=== PATIENT | male | born 1945 | race Caucasian/White ===

== ENCOUNTER 2023-01-03 10:50 | Outpatient (OUT) | payer MEDICARE, SELFPAY ==
[2023-01-03 11:47] LABS: Calcium 9.3 mg/dL (8.5-10.1); Carbon Dioxide 28.8 mmol/L (21.0-32.0); Chloride 102 mmol/L (98-107); Estimated GFR (African America >60 (>=60); Estimated GFR (Non-African Ame 52 (>=60); Glucose 229 mg/dL (74-106); Potassium 3.8 mmol/L (3.5-5.1); Sodium 140 mmol/L (136-145)
== END 2023-01-03 10:51 | disposition home or self-care (01) ==
LOC: LAB 10:55
PROVIDERS: PCP Nurse Practitioner Family
DX: Z01.818 Encounter for other preprocedural examination (principal)
CPT/HCPCS: 36415; 80048

== ENCOUNTER 2024-02-09 08:49 | Outpatient (OUT) | payer OTHER, SELFPAY ==
[2024-02-09 09:48] LABS: Estimated Average Glucose 151 mg/dL; Glycohemoglobin A1C 6.9 % (4.5-6.2)
== END 2024-02-09 08:50 | disposition home or self-care (01) ==
LOC: LAB 08:54
PROVIDERS: PCP Nurse Practitioner Family; Visit Provider Nurse Practitioner Family
DX: E11.9 Type 2 diabetes mellitus without complications (principal)
CPT/HCPCS: 36415; 83036

== ENCOUNTER 2024-04-09 08:16 | Outpatient (OUT) | payer OTHER, SELFPAY ==
[2024-04-09 08:40] LABS: Estimated Average Glucose 183 mg/dL
== END 2024-04-09 08:17 | disposition home or self-care (01) ==
LOC: LAB 08:19
PROVIDERS: PCP Nurse Practitioner Family; Visit Provider Nurse Practitioner Family
DX: E11.9 Type 2 diabetes mellitus without complications (principal)
CPT/HCPCS: 36415; 83036

== ENCOUNTER 2025-02-05 08:00 | Outpatient (OUT) | payer OTHER, SELFPAY ==
--- OUTSIDE RECORDS SUMMARY | 2025-02-05 08:12 | XMS_ITS | CCD ---
Author Organization [facility] Inform ion Partnership [employer] [facility] Care Team Providers Care Rag Boiler Name Role Phone JAQUI LEES Admitting Unavailable YOANA, JAQUI Attending Unavailable YOANA, JAQUI Primary Care Unavailable YOANA, JAQUI Consulting Unavailable YOANA, JAQUI Admitting Unavailable YOANA, JAQUI Attending Unavailable YOANA, JAQUI Primary Care Unavailable YOANA, JAQUI Consulting Unavailable HOY ., DR MATHUR Admitting Unavailable HOY ., DR MATHUR Attending Unavailable YOANA, JAQUI Primary Care Unavailable HOY ., DR MATHUR Consulting Unavailable YOANA, JAQUI Admitting Unavailable YOANA, JAQUI Attending Unavailable YOANA, JAQUI Primary Care Unavailable YOANA, JAQUI Admitting Unavailable YOANA, JAQUI Attending Unavailable YOANA, JAQUI Primary Care Unavailable YOANA, JAQUI Consulting Unavailable YOANA, JAQUI Admitting Unavailable YOANA, JAQUI Attending Unavailable YOANA, JAQUI Primary Care Unavailable YOANA, JAQUI Consulting Unavailable YOANA, JAQUI S Primary Care Physician [phone] Venkata PHILLIPS Attending Unavailable Venkata PHILLIPS Attending Unavailable MARICARMEN HURTADO Attending Unavailable ROGE MILNER Attending Unavailable Medications Current Medications Medication Drug Class(es) Dates Sig (Normalized) Sig (Original) Ascorbic Acid (2 sources) Vitamin C Start: 02-22-2021 Vitamin C Daily, Refills(s) 0 Start Date: 02/22/21 Status: Ordered aspirin 325 mg oral tablet (2 sources) Platelet Aggregation Inhibitor, Nonsteroidal Anti-inflammatory Drug Start: 11-20-2014 take 325 mg by mouth once daily aspirin 325 mg, Oral, Daily, Refills(s) 0 Start Date: 11/20/14 Status: Ordered Atenolol / Chlorthalidone (2 sources) Thiazide-like Diuretic, beta-Adrenergic Bryce Start: 08-22-2013 atenolol-chlorthal idone 100 mg-25 mg oral tablet 1 tab(s), Oral, Daily, 30 tab(s), Refill(s) 0 Start Date: 08/22/13 Status: Ordered Cinnamon Preparation (2 sources) Non-Standardized Food Allergenic Extract Start: 02-22-2021 take 1 mg by mouth twice daily cinnamon mg, Oral, BID, Refills(s) 0 Start Date: 02/22/21 Status: Ordered famotidine 20 mg oral tablet (2 sources) Histamine-2 Receptor Antagonist Start: 02-22-2021 take 1 mg by mouth twice daily famotidine 20 mg Tab mg tab(s), Oral, BID, Refills(s) 0 Start Date: 02/22/21 Status: Ordered magnesium oxide 400 mg oral tablet (2 sources) Start: 02-22-2021 take 1 mg by mouth once daily magnesium oxide 400 mg Tab mg tab(s), Oral, Daily, Refills(s) 0 Start Date: 02/22/21 Status: Ordered metFORMIN hydrochloride 500 mg oral tablet (2 sources) Biguanide Start: 11-20-2014 take 500 mg by mouth twice daily metformin 500 mg, Oral, BID, Refills(s) 0 Start Date: 11/20/14 Status: Ordered Multivitamins and Minerals (2 sources) Start: 02-22-2021 Multivitamins and Minerals Refill(s) 0 Start Date: 02/22/21 Status: Ordered Nasacort Allergy 24HR (2 sources) Start: 02-22-2021 Nasacort Allergy 24HR Nasal, Daily, Refill(s) 0 Start Date: 02/22/21 Status: Ordered tamsulosin hydrochloride 0.4 mg oral capsule (2 sources) alpha-Adrenergic Bryce Start: 08-17-2023 take 1 capsule by mouth once daily tamsulosin 0.4 mg Cap 0.4 mg = 1 cap(s), Oral, Daily, # 90 cap(s), Refills(s) 4, Pharmacy: [facility]/pharmacy #[id number], 178, cm, 10/17/22 14:22:00 EDT, Height/Length Dosing, 78, kg, 10/17/22 14:22:00 EDT, Weight Dosing Start Date: 08/17/23 Status: Ordered Start: 08-15-2022 take 1 capsule by [facility] once daily tamsulosin 0.4 mg Cap 0.4 mg = 1 cap(s), Oral, Daily, # 90 cap(s), Refills(s) 3, Pharmacy: [facility]/pharmacy #[id number], 178, cm, 03/02/21 11:25:00 EDT, Height/Length Dosing, 77, kg, 02/22/21 13:18:00 EDT, Weight Dosing Start Date: 08/15/22 Status: Ordered Turmeric extract (1 source) Start: 02-22-2021 take 1 mg by mouth once daily Turmeric mg, Oral, Daily, Refill(s) 0 Start Date: 02/22/21 Status: Ordered Vitamin B Complex oral tablet (2 sources) Start: 02-22-2021 Vitamin B Comp mary carmen oral tablet Oral, Daily, Refill(s) 0 Start Date: 02/22/21 Status: Ordered Vitamin D3 (2 sources) Start: 02-22-2021 Vitamin D3 Ref ills(s) 0 Start Date: 02/22/21 Status: Ordered Zinc (1 source) Start: 02-22-2021 take 1 mg by mouth once daily Zinc mg, Oral, Daily, Refills(s) 0 Start Date: 02/22/21 Status: Ordered Completed/Discontinued Medications Medication Drug Class(es) Dates Sig (Normalized) Sig (Original) potassium chloride 8 meq extended release oral tablet (2 sources) Start: 11-20-2014 take 1 tablet by mouth once daily potassium chloride 8 mEq ER Tab 8 mEq, 1 tab(s), Oral, Daily, Refill(s) 0 Start Date: 11/20/14 Status: Ordered Problems Active Problems Problem Classification Problem Date Documented Date Episodic/Chronic Calculus of urinary tract (4 sources) History of calculus of kidney; Translations: [Personal history of urinary calculi] Onset: 06-13-2022 Episodic Diabetes mellitus without complication (2 sources) Diabetes mellitus 11-20-2014 Chronic Diseases of white blood cells (4 sources) Elevated white blood cell count, unspecified; Translations: [ELEVATED WHITE BLOOD CELL COUNT UNS] Onset: 11-30-2021 Chronic Disorders of lipid metabolism (3 sources) Hyperlipidemia, unspecified; Translations: [Hypercholesterolemia] Onset: 10-06-2021 11-20-2014 Chronic Esophageal disorders (2 sources) Gastroesophageal reflux disease 11-20-2014 Chronic Essential hypertension (2 sources) Hypertensive disorder 11-20-2014 Chronic Hyperplasia of prostate (6 sources) Benign prostatic hypertrophy with outflow obstruction; Translations: [Benign prostatic hyperplasia with lower urinary tract symptoms] Onset: 06-13-2022 Chronic Inflammatory conditions of male genital organs (2 sources) Prostatitis 02-22-2021 Episodic Malaise and fatigue (4 sources) Other fatigue; Translations: [OTHER FATIGUE] Onset: 06-20-2022 Episodic Nutritional deficiencies (1 source) Vitamin D deficiency, unspecified; Translations: [VITAMIN D DEFICIENCY UNSPECIFIED] Onset: 10-06-2021 Chronic Other diseases of bladder and urethra (2 sources) Hypertrophy of bladder 02-22-2021 Chronic Other diseases of kidney and ureters (2 sources) Cyst of kidney 02-22-2021 Episodic Other screening for suspected conditions (not mental disorders or infectious disease) (4 sources) Other specified abnormal findings of blood chemistry; Translations: [OTH SPEC ABNORMAL FINDINGS BLD CHEM] Onset: 06-21-2022 Episodic Past or Other Problems Problem Classification Problem Date Documented Da te Episodic/Chronic Deficiency and other anemia (1 source) Anemia, unspecified; Translations: [ANEMIA UNSPECIFIED] Onset: 10-06-2021 Episodic Results Test Name Value Interpretation Reference Range Facility Reminderson 06-26-2024 Reminders Reminders From: Joanna Dumont To: [facility] - Administrative; Sent: 10/23/2023 14:34:51 EDT Show up: 05/30/2024 14:34:00 EST Subject: 18 month F/U Due Date/Time: 04/09/2025 14:34:00 EST Reminder/Recall Patient needs an 18 month f/u -no labs, due back in 2024 Called patient on 26 June 2024 at 1111; 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 The prostate may get bigger as a man gets older. The condition is not caused by cancer. The prostate is a walnut-sized gland that is involved in the production of semen. It is located in front of the rectum and below the bladder. The bladder stores urine. The urethra carries stored urine out of the body. An enlarged prostate can press on the urethra. This can make it harder to pass urine. The buildup of urine in the bladder can cause infection. Back pressure and infection may progress to bladder damage and kidney (renal) failure. What are the causes? This condition is part of the normal aging process. However, not all men develop problems from this condition. If the prostate enlarges away from the urethra, urine flow will not be blocked. If it enlarges toward the urethra and compresses it, there will be problems passing urine. What increases the risk? This condition is more likely to develop in men older than 50 years. What are the signs or symptoms? Symptoms of this condition include: ? Getting up often during the night to urinate. ? Needing to urinate frequently during the day. ? Difficulty starting urine flow. ? Decrease in size and strength of your urine stream. ? Leaking (dribbling) after urinating. ? Inability to pass urine. This needs immediate treatment. ? Inability to completely empty your bladder. ? Pain when you pass urine. This is more common if there is also an infection. ? Urinary tract infection (UTI). How is this diagnosed? This condition is diagnosed based on your medical history, a physical exam, and your symptoms. Tests will also be done, such as: ? A post-void bladder scan. This measures any amount of urine that may remain in your bladder after you finish urinating. ? A digital rectal exam. In a rectal exam, your health care provider checks your prostate by putting a lubricated, gloved finger into your rectum to feel the back of your prostate gland. This exam detects the size of your gland and any abnormal lumps or growths. ? An exam of your urine (urinalysis). ? A prostate specific antigen (PSA) screening. This is a blood test used to screen for prostate cancer. ? An ultrasound. This test uses sound waves to electronically produce a picture of your prostate gland. Your health care provider may refer you to a specialist in kidney and prostate diseases (urologist). How is this treated? Once symptoms begin, your health care provider will monitor your condition (active surveillance or watchful waiting). Treatment for this condition will depend on the severity of your condition. Treatment may include: ? Observation and yearly exams. This may be the only treatment needed if your condition and symptoms are mild. ? Medicines to relieve your symptoms, including: ? Medicines to shrink the prostate. ? Medicines to relax the muscle of the prostate. ? Surgery in severe cases. Surgery may include: ? Prostatectomy. In this procedure, the prostate tissue is removed completely through an open incision or with a laparoscope or robotics. ? Transurethral resection of the prostate (TURP). In this procedure, a tool is inserted through the opening at the tip of the penis (urethra). It is used to cut away tissue of the inner core of the prostate. The pieces are removed through the same opening of the penis. This removes the blockage. ? Transurethral incision (TUIP). In this procedure, small cuts are made in the prostate. This lessens the prostate's pressure on the urethra. ? Transurethral microwave thermotherapy (TUMT). This procedure uses microwaves to create heat. The heat destroys and removes a small amount of prostate tissue. ? Transurethral needle ablation (TUNA). This procedure uses radio frequencies to destroy and remove a small amount of prostate tissue. ? Interstitial laser coagulation (ILC). This procedure uses a laser to destroy and remove a small amount of prostate tissue. ? Transurethral electrovaporization (TUVP). This procedure uses electrodes to destroy and remove a small amount of prostate tissue. ? Prostatic urethral lift. This procedure inserts an implant to push the lobes of the prostate away from the urethra. Follow these instructions at home: ? Take [id number] and prescription medicines only as told by your health care provider. ? Monitor your symptoms for any changes. Contact your health care provider with any changes. ? Avoid drinking large amounts of liquid before going to bed or out in public. ? Avoid or reduce how much caffeine or alcohol you drink. ? Give yourself time when you urinate. ? Keep all follow-up visits. This is important. Contact a health care provider if: ? You have unexplained back pain. ? Your symptoms do not get better with treatment. ? You develop side effects from the medicine (more content not included)... Normal [facility] Urology Office/Clinic Noteon 10-23-2023 Urology Office/Clinic Note Chief Complaint 1yr HPI Staff 1 yr w/ no labs. Dx: BPH with obstruction, hx of kidney stones. *Tamsulosin 0.4mg qhs Per last encounter DC PSA monitoring. Denies all urinary sx. Attributes to Tamsulosin therapy. No concerns at this time. History of Present Illness Tests reviewed: reviewed UA I have reviewed the previous health record information and history for this patient from Dr. Phillips. I have reviewed and verified the staff HPI to be accurate for this encounter. Review of Systems PHQ Score Initial Depression Screen Score: 0 SCORE ROS - Provider Constitutional: denies weight loss, denies hot flashes. Eyes: denies eye problems. Gastrointestinal: denies nausea, denies vomiting. Cardiovascular: denies chest pain or angina. Integumentary: no dryness Musculoskeletal: denies musculoskeletal symptoms. ENMT: denies otolaryngeal symptoms. Respiratory: no shortness of breath. Heme/Lymph: denies easy bleeding tendency, denies easy bruising tendency. Psychiatric: no confusion, no anxiety. Genitourinary: See HPI. Physical Exam Vitals & Measurements HR: 63(Peripheral) RR: 16 BP: 117/78 HT: 70 in HT: 178 cm WT: 75.5 kg WT: 166.1 lb BMI: 23.83 General Appearance: alert, no distress, well nourished, well developed male. Assessment/Plan 1. BPH with urinary obstruction (N40.1: Benign prostatic hyperplasia with lower urinary tract symptoms) Cysto 03/02/21 - Obstructing median lobe, trilobar obstruction. Moderate trabeculation. UA today negative for blood and infection. Taking Tamsulosin 0.4 mg qhs. No changes in urination over the last year. Denies any difficulty with urination during the day. -Cont Tamsulosin wo changes. Pt to call for refills. -F/u in 18 mos or sooner 2. History of kidney stones (Z87.442: Personal history of urinary calculi) No recent imaging. [1] Follow-up With When Contact Information MARIELLA HO, Venkata Stein, [facility] [address] , [place] [address]- [phone] Additional Instructions: 18 mos (no labs) Patient Education Benign Prostatic Hyperplasia I, Naty Gutierrez, personally scribed for Dr. Phillips on 10/23/2023 13:26:43. . Documentation recorded by the scribe, Naty Gutierrez, accurately reflects the services(s) I performed and decisions made by me. Authenticated by Dr. Phillips on 10/23/2023 13:30:30. Problem List/Past Medical History Ongoing Acid reflux Bladder wall thickening BPH with urinary obstruction BPH without urinary obstruction Diabetes High blood cholesterol History of kidney stones Hypertension Prostatitis Renal cyst, left Historical No qualifying data Procedure/Surgical History Cystoscopy (03/02/2021), Injection of facet joint using fluoroscopic guidance (08/28/2013), cervical discetomy, ESWL - Extracorporeal shockwave lithotripsy of ureteric calculus, Repair of rectal fistula, Tonsillectomy and adenoidectomy. Medications aspirin, 325 mg, Oral, Daily atenolol-chlorthalidone 100 mg-25 mg oral tablet, 1 tab(s), Oral, Daily cinnamon, Oral, BID famotidine 20 mg Tab, Oral, BID magnesium oxide 400 mg Tab, Oral, Daily metformin, 500 mg, Oral, BID Multivitamins and Minerals Nasacort Allergy 24HR, Nasal, Daily potassium chloride 8 mEq ER Tab, 8 mEq= 1 tab(s), Oral, Daily tamsulosin 0.4 mg Cap, 0.4 mg= 1 cap(s), Oral, Daily, 4 refills Vitamin B Complex oral tablet, Oral, Daily Vitamin C, Daily Vitamin D3 Allergies No Known Allergies Social History Tobacco Never (less than 100 in lifetime) Tobacco Use:. Never Smokeless Tobacco Use:. Household tobacco concerns: No. Yes, 10/23/2023 Family History Breast cancer: Mother. Diabetes mellitus type 1: Father. Heart disease: Father. Immunizations Vaccine Date Status Comments influenza virus vaccine, inactivated 03/22/2023 Recorded influenza virus vaccine, inactivated 03/14/2022 Recorded SARS-CoV-2 (COVID-19) mRNA BNT-162b2 vax 02/27/2021 Recorded 2022-10-17: [id number] SARS-CoV-2 (COVID-19) mRNA BNT-162b2 vax 02/05/2021 Recorded pt is scheduled for second dose 02/27/21 influenza virus vaccine, inactivated 01/29/2021 Recorded influenza virus vaccine, inactivated 03/14/2020 Recorded influenza virus vaccine, inactivated 01/30/2019 Recorded pneumococcal 13-valent vaccine 03/02/2018 Recorded influenza virus vaccine, inactivated 03/02/2018 Recorded influenza virus vaccine, inactivated 02/04/2016 Recorded Lab Results Ambulatory Point of Care Results Bilirubin Urine Dipstick: 1+ Small (10/23/23 12:45:00) Blood Urine Dipstick: Negative (10/23/23 12:45:00) Glucose Urine Dipstick: Negative (10/23/23 12:45:00) Ketones Urine Dipstick: Trace - 5 mg/dl (10/23/23 12:45:00) Leukocytes Urine Dipstick: Negative (10/23/23 12:45:00) Nitrite Urine Dipstick: Negative (10/23/23 12:45:00) Protein Urine Dipstick: Negative (10/23/23 12:45:00) Specific [place] Urine Dipstick: >=1.030 (10/23/23 12:45:00) (more content not included)... Normal [facility] Comment on above: Result Comment: Elec tronically Signed By: Venkata PHILLIPS MD\.br\Date and Time Signed: 10/23/23 13:30 EDT\.br\Electronically Co-Signed By: Naty Gutierrez\.br\Date and Time Co-Signed: 10/23/23 13:27 EDT CBC AUTO DIFFon 06-20-2022 BASO # 0.0 103/ul Normal 0.0-0.1 [facility] Comment on above: Performed By: #### C BC #### [facility] [address] [place] [address] Dr. Cristobal Garnett Basophils/100 WBC (Bld) 0.7 % Normal 0.2-2.0 [facility] Comment on above: Performed By: #### C BC #### [facility] [address] [place] [address] Dr. Cristobal Garnett EO # 0.2 103/ul Normal 0.0-0.7 [facility] Comment on above: Performed By: #### C BC #### [facility] [address] [place] [address] Dr. Cristobal Garnett Eosinophils/100 WBC (Bld) 5.1 % Normal 0.9-7.0 [facility] Comment on above: Performed By: #### C BC #### [facility] [address] [place] [address] Dr. Cristobal Garnett Erythrocyte distribution width (RBC) [Ratio] 14.7 % Normal 11.0-15.0 [facility] Comment on above: Performed By: #### C BC #### [facility] [address] [place] [address] Dr. Cristobal Garnett Hematocrit (Bld) [Volume fraction] 42.2 % Normal 42.0-54.0 [facility] Comment on above: Performed By: #### C BC #### [facility] [address] [place] [address] Dr. Cristobal Garnett Hemoglobin (Bld) [Mass/Vol] 14.1 g/dL Normal 14.0-18.0 [facility] Comment on above: Performed By: #### C BC #### [facility] [address] [place] [address] Dr. Cristobal Garnett IG # 0.01 10e3/ul Normal 0.00-0.03 [facility] Comment on above: Performed By: #### C BC #### [facility] [address] [place] [address] Dr. Cristobal Garnett IG % 0.2 % Normal 0.0-0.5 [facility] Comment on above: Performed By: #### C BC #### [facility] [address] [place] [address] Dr. Cristobal Garnett LYMPH # 0.9 103/ul Critically low 1.2-3.8 [facility] Comment on above: Performed By: #### C BC #### [facility] [address] [place] [address] Dr. Cristobal Garnett Lymphocytes/100 WBC (Bld) 20.7 % Normal 20.5-60.0 [facility] Comment on above: Performed By: #### C BC #### [facility] [address] [place] [address] Dr. Cristobal Garnett MANUAL DIFF REQ NO Normal [facility] Comment on above: Performed By: #### C BC #### [facility] [address] [place] [address] Dr. Cristobal Garnett MCH (RBC) [Entitic mass] 31.5 pg Normal 25.9-34.0 [facility] Comment on above: Performed By: #### C BC #### [facility] [address] [place] [address] Dr. Cristobal Garnett MCHC (RBC) [Mass/Vol] 33.4 g/dL Normal 29.9-35.2 [facility] Comment on above: Performed By: #### C BC #### [facility] [address] [place] [address] Dr. Cristobal Garnett MCV (RBC) [Entitic vol] 94.2 fL Critically high 80.0-94.0 [facility] Comment on above: Performed By: #### C BC #### [facility] [address] [place] [address] Dr. Cristobal Garnett MONO # 1.3 103/ul Critically high 0.3-0.8 [facility] Comment on above: Performed By: #### C BC #### [facility] [address] [place] [address] Dr. Cristobal Garnett Monocytes/100 WBC (Bld) 29.2 % Critically high 1.7-12.0 [facility] Comment on above: Performed By: #### C BC #### [facility] [address] [place] [address] Dr. Cristobal Garnett NEUT # 1.9 103/ul Normal 1.4-6.5 [facility] Comment on above: Performed By: #### C BC #### [facility] [address] [place] [address] Dr. Cristobal Garnett Neutrophils/100 WBC (Bld) 44.1 % Normal 43.0-75.0 [facility] Comment on above: Performed By: #### C BC #### [facility] [address] [place] [address] Dr. Cristobal Garnett Platelet mean volume (Bld) [Entitic vol] 10.7 fL Normal 9.5-13.5 [facility] Comment on above: Performed By: #### C BC #### [facility] [address] [place] [address] Dr. Cristobal Garnett PLT 216 103/ul Normal 150-450 [facility] Comment on above: Performed By: #### C BC #### [facility] [address] [place] [address] Dr. Cristobal Garnett RBC 4.48 106/ul Critically low 4.70-6.10 [facility] Comment on above: Performed By: #### C BC #### [facility] [address] [place] [address] Dr. Cristobal Garnett WBC 4.4 103/ul Normal 4.0-11.0 [facility] Comment on above: Performed By: #### C BC #### [facility] [address] [place] [address] Dr. Cristobal Garnett PERIPHERAL SMEARon 3 Pathologist Cyto stain Nom (Cvx/Vag) [ID] DR. COLLEEN REDDY Normal [facility] Comment on above: Result Comment: --Mi ld lymphopenia of unknown etiology. --Mild monocytosis. ICD code: D72.821 Dr Colleen Reddy 06/23/2022 Performed By: #### P ERSMR #### [facility] [address] [place] [address] Dr. Cristobal Garnett CBC AUTO DIFFon 11-30-2021 BASO # 0.0 103/ul Normal 0.0-0.1 [facility] Comment on above: Performed By: #### C BC #### [facility] [address] [place] [address] Dr. Cristobal Garnett Basophils/100 WBC (Bld) 0.5 % Normal 0.2-2.0 [facility] Comment on above: Performed By: #### C BC #### [facility] [address] [place] [address] Dr. Cristobal Garnett EO # 0.3 103/ul Normal 0.0-0.7 [facility] Comment on above: Performed By: #### C BC #### [facility] [address] [place] [address] Dr. Cristobal Garnett Eosinophils/100 WBC (Bld) 6.6 % Normal 0.9-7.0 [facility] Comment on above: Performed By: #### C BC #### [facility] [address] [place] [address] Dr. Cristobal Garnett Erythrocyte distribution width (RBC) [Ratio] 15.1 % Critically high 11.0-15.0 [facility] Comment on above: Performed By: #### C BC #### [facility] [address] [place] [address] Dr. Cristobal Garnett Hematocrit (Bld) [Volume fraction] 41.1 % Critically low 42.0-54.0 [facility] Comment on above: Performed By: #### C BC #### [facility] [address] [place] [address] Dr. Cristobal Garnett Hemoglobin (Bld) [Mass/Vol] 13.7 g/dL Critically low 14.0-18.0 [facility] Comment on above: Performed By: #### C BC #### [facility] [address] [place] [address] Dr. Cristobal Garnett IG # 0.01 10e3/ul Normal 0.00-0.03 [facility] Comment on above: Performed By: #### C BC #### [facility] [address] [place] [address] Dr. Cristobal Garnett IG % 0.3 % Normal 0.0-0.5 [facility] Comment on above: Performed By: #### C BC #### [facility] [address] [place] [address] Dr. Cristobal Garnett LYMPH # 0.9 103/ul Critically low 1.2-3.8 [facility] Comment on above: Performed By: #### C BC #### [facility] [address] [place] [address] Dr. Cristoabl Garnett Lymphocytes/100 WBC (Bld) 22.4 % Normal 20.5-60.0 [facility] Comment on above: Performed By: #### C BC #### [facility] [address] [place] [address] Dr. Cristobal Garnett MANUAL DIFF REQ NO Normal [facility] Comment on above: Performed By: #### C BC #### [facility] [address] [place] [address] Dr. Cristobal Garnett MCH (RBC) [Entitic mass] 31.4 pg Normal 25.9-34.0 [facility] Comment on above: Performed By: #### C BC #### [facility] [address] [place] [address] Dr. Cristobal Garnett MCHC (RBC) [Mass/Vol] 33.3 g/dL Normal 29.9-35.2 [facility] Comment on above: Performed By: #### C BC #### [facility] [address] [place] [address] Dr. Cristobal Garnett MCV (RBC) [Entitic vol] 94.1 fL Critically high 80.0-94.0 [facility] Comment on above: Performed By: #### C BC #### [facility] [address] [place] [address] Dr. Cristobal Garnett MONO # 0.9 103/ul Critically high 0.3-0.8 [facility] Comment on above: Performed By: #### C BC #### [facility] [address] [place] [address] Dr. Cristobal Garnett Monocytes/100 WBC (Bld) 23.0 % Critically high 1.7-12.0 [facility] Comment on above: Performed By: #### C BC #### [facility] [address] [place] [address] Dr. Cristobal Garnett NEUT # 1.9 103/ul Normal 1.4-6.5 [facility] Comment on above: Performed By: #### C BC #### [facility] [address] [place] [address] Dr. Cristobal Garnett Neutrophils/100 WBC (Bld) 47.2 % Normal 43.0-75.0 [facility] Comment on above: Performed By: #### C BC #### [facility] [address] [place] [address] Dr. Cristobal Garnett Platelet mean volume (Bld) [Entitic vol] 10.6 fL Normal 9.5-13.5 [facility] Comment on above: Performed By: #### C BC #### [facility] [address] [place] [address] Dr. Cristobal Garnett PLT 206 103/ul Normal 150-450 [facility] Comment on above: Performed By: #### C BC #### [facility] [address] [place] [address] Dr. Cristobal Garnett RBC 4.37 106/ul Critically low 4.70-6.10 [facility] Comment on above: Performed By: #### C BC #### [facility] [address] [place] [address] Dr. Cristobal Garnett WBC 3.9 103/ul Critically low 4.0-11.0 [facility] Comment on above: Performed By: #### C BC #### [facility] [address] [place] [address] Dr. Cristobal Garnett CBC AUTO DIFFon 10-26-2021 BASO # 0.0 103/ul Normal 0.0-0.1 [facility] Comment on above: Performed By: #### C BC #### [facility] [address] [place] [address] Dr. Cristobal Garnett Basophils/100 WBC (Bld) 0.6 % Normal 0.2-2.0 [facility] Comment on above: Performed By: #### C BC #### [facility] [address] [place] [address] Dr. Cristobal Garnett EO # 0.3 103/ul Normal 0.0-0.7 [facility] Comment on above: Performed By: #### C BC #### [facility] [address] [place] [address] Dr. Cristobal Garnett Eosinophils/100 WBC (Bld) 4.6 % Normal 0.9-7.0 [facility] Comment on above: Performed By: #### C BC #### [facility] [address] [place] [address] Dr. Cristobal Garnett Erythrocyte distribution width (RBC) [Ratio] 14.5 % Normal 11.0-15.0 [facility] Comment on above: Performed By: #### C BC #### [facility] [address] [place] [address] Dr. Cristobal Garnett Hematocrit (Bld) [Volume fraction] 41.2 % Critically low 42.0-54.0 [facility] Comment on above: Performed By: #### C BC #### [facility] [address] [place] [address] Dr. Cristobal Garnett Hemoglobin (Bld) [Mass/Vol] 14.0 g/dL Normal 14.0-18.0 [facility] Comment on above: Performed By: #### C BC #### [facility] [address] [place] [address] Dr. Cristobal Garnett IG # 0.01 10e3/ul Normal 0.00-0.03 [facility] Comment on above: Performed By: #### C BC #### [facility] [address] [place] [address] Dr. Cristobal Garnett IG % 0.2 % Normal 0.0-0.5 [facility] Comment on above: Performed By: #### C BC #### [facility] [address] [place] [address] Dr. Cristobal Garnett LYMPH # 1.2 103/ul Normal 1.2-3.8 [facility] Comment on above: Performed By: #### C BC #### [facility] [address] [place] [address] Dr. Cristobal Garnett Lymphocytes/100 WBC (Bld) 21.9 % Normal 20.5-60.0 [facility] Comment on above: Performed By: #### C BC #### [facility] [address] [place] [address] Dr. Cristobal Garnett MANUAL DIFF REQ NO Normal [facility] Comment on above: Performed By: #### C BC #### [facility] [address] [place] [address] Dr. Cristobal Garnett MCH (RBC) [Entitic mass] 31.5 pg Normal 25.9-34.0 [facility] Comment on above: Performed By: #### C BC #### [facility] [address] [address] [address] Cristobal Garnett MCHC (RBC) [Mass/Vol] 34.0 g/dL Normal 29.9-35.2 [facility] Comment on above: Performed By: #### C BC #### [facility] [address] [place] [address] Dr. Cristobal Garnett MCV (RBC) [Entitic vol] 92.6 fL Normal 80.0-94.0 [facility] Comment on above: Performed By: #### C BC #### [facility] [address] [place] [address] Dr. Cristobal Garnett MONO # 1.4 103/ul Critically high 0.3-0.8 [facility] Comment on above: Performed By: #### C BC #### [facility] [address] [place] [address] Dr. Cristobal Garnett Monocytes/100 WBC (Bld) 26.0 % Critically high 1.7-12.0 [facility] Comment on above: Performed By: #### C BC #### [facility] [address] [place] [address] Dr. Cristobal Garnett NEUT # 2.5 103/ul Normal 1.4-6.5 [facility] Comment on above: Performed By: #### C BC #### [facility] [address] [place] [address] Dr. Cristobal Garnett Neutrophils/100 WBC (Bld) 46.7 % Normal 43.0-75.0 [facility] Comment on above: Performed By: #### C BC #### [facility] [address] [place] [address] Dr. Cristobal Garnett Platelet mean volume (Bld) [Entitic vol] 10.0 fL Normal 9.5-13.5 [facility] Comment on above: Performed By: #### C BC #### [facility] [address] [address] [address] Cristobal Garnett PLT 232 103/ul Normal 150-450 [facility] Comment on above: Performed By: #### C BC #### [facility] [address] [address] [address] Cristobal Garnett RBC 4.45 106/ul Critically low 4.70-6.10 [facility] Comment on above: Performed By: #### C BC #### [facility] [address] [address] [address] Cristobal Garnett WBC 5.4 103/ul Normal 4.0-11.0 [facility] Comment on above: Performed By: #### C BC #### [facility] [address] [place] [address] Dr. Cristobal Garnett T4 LABCORPon 10-07-2021 T4 [Mass/Vol] 7.3 ug/dL Normal 4.5-12.0 [facility] Comment on above: Performed By: #### T 4LC #### [facility] [address] [place] [address] Dr. Cristobal Garnett TESTOSTERONE, TOTALon 2021 Testosterone [Mass/Vol] 542 ng/dL Normal 264-916 [facility] Comment on above: Result Comment: Adul t male reference interval is based on a population of healthy nonobese males (BMI <30) between 19 and 39 years old. Samson, et.al. JCEM 2017,102;[id number]. PMID: [id number]. Performed By: #### T ESTTOT #### [facility] [address] [place] [address] Dr. Cristobal Garnett CBC AUTO DIFFon 09-29-2021 BASO # 0.0 103/ul Normal 0.0-0.1 [facility] Comment on above: Performed By: #### T SH, LIPID, CMP, T7 #### [facility] [address] [place], [place] [id number] Dr. Cristobal Garnett Basophils/100 WBC (Bld) 0.4 % Normal 0.2-2.0 [facility] Comment on above: Performed By: #### T SH, LIPID, CMP, T7 #### [facility] [address] [place] [address] Dr. Cristobal Garnett EO # 0.2 103/ul Normal 0.0-0.7 [facility] Comment on above: Performed By: #### T SH, LIPID, CMP, T7 #### [facility] [address] [place] [address] Dr. Cristobal Garnett Eosinophils/100 WBC (Bld) 4.1 % Normal 0.9-7.0 [facility] Comment on above: Performed By: #### T SH, LIPID, CMP, T7 #### [facility] [address] [place] [address] Dr. Cristobal Garnett Erythrocyte distribution width (RBC) [Ratio] 14.6 % Normal 11.0-15.0 [facility] Comment on above: Performed By: #### T SH, LIPID, CMP, T7 #### [facility] [address] [place] [address] Dr. Cristobal Garnett Hematocrit (Bld) [Volume fraction] 43.1 % Normal 42.0-54.0 [facility] Comment on above: Performed By: #### T SH, LIPID, CMP, T7 #### [facility] [address] [place] [address] Dr. Cristobal Garnett Hemoglobin (Bld) [Mass/Vol] 14.4 g/dL Normal 14.0-18.0 [facility] Comment on above: Performed By: #### T SH, LIPID, CMP, T7 #### [facility] [address] [place] [address] Dr. Cristobal Garnett IG # 0.01 10e3/ul Normal 0.00-0.03 [facility] Comment on above: Performed By: #### T SH, LIPID, CMP, T7 #### [facility] [address] [place] [address] Dr. Cristobal Garnett IG % 0.2 % Normal 0.0-0.5 [facility] Comment on above: Performed By: #### T SH, LIPID, CMP, T7 #### [facility] [address] [place] [address] Dr. Cristobal Garnett LYMPH # 1.0 103/ul Critically low 1.2-3.8 [facility] Comment on above: Performed By: #### T SH, LIPID, CMP, T7 #### [facility] [address] [address] [address] Cristobal Garnett Lymphocytes/100 WBC (Bld) 19.6 % Critically low 20.5-60.0 [facility] Comment on above: Performed By: #### T SH, LIPID, CMP, T7 #### [facility] [address] [address] [address] Cristobal Garnett MANUAL DIFF REQ NO Normal [facility] Comment on above: Performed By: #### T SH, LIPID, CMP, T7 #### [facility] [address] [address] [address] Cristobal Garnett MCH (RBC) [Entitic mass] 31.7 pg Normal 25.9-34.0 [facility] Comment on above: Performed By: #### T SH, LIPID, CMP, T7 #### [facility] [address] [address] [address] Cristobal Garnett MCHC (RBC) [Mass/Vol] 33.4 g/dL Normal 29.9-35.2 [facility] Comment on above: Performed By: #### T SH, LIPID, CMP, T7 #### [facility] [address] [address] [address] Cristobal Garnett MCV (RBC) [Entitic vol] 94.9 fL Critically high 80.0-94.0 [facility] Comment on above: Performed By: #### T SH, LIPID, CMP, T7 #### [facility] [address] [address] [address] Cristobal Garnett MONO # 1.6 103/ul Critically high 0.3-0.8 [facility] Comment on above: Performed By: #### T SH, LIPID, CMP, T7 #### [facility] [address] [address] [address] Cristobal Garnett Monocytes/100 WBC (Bld) 30.5 % Critically high 1.7-12.0 [facility] Comment on above: Performed By: #### T SH, LIPID, CMP, T7 #### [facility] [address] [address] [address] Cristobal Garnett NEUT # 2.3 103/ul Normal 1.4-6.5 [facility] Comment on above: Performed By: #### T SH, LIPID, CMP, T7 #### [facility] [address] [place] [address] Dr. Cristobal Garnett Neutrophils/100 WBC (Bld) 45.2 % Normal 43.0-75.0 [facility] Comment on above: Performed By: #### T SH, LIPID, CMP, T7 #### [facility] [address] [place] [address] Dr. Cristobal Garnett Platelet mean volume (Bld) [Entitic vol] 10.4 fL Normal 9.5-13.5 [facility] Comment on above: Performed By: #### T SH, LIPID, CMP, T7 #### [facility] [address] [place] [address] Dr. Cristobal Garnett PLT 214 103/ul Normal 150-450 [facility] Comment on above: Performed By: #### T SH, LIPID, CMP, T7 #### [facility] [address] [place] [address] Dr. Cristobal Garnett RBC 4.54 106/ul Critically low 4.70-6.10 [facility] Comment on above: Performed By: #### T SH, LIPID, CMP, T7 #### [facility] [address] [place] [address] Dr. Cristobal Garnett WBC 5.1 103/ul Normal 4.0-11.0 [facility] Comment on above: Performed By: #### T SH, LIPID, CMP, T7 #### [facility] [address] [place] [address] Dr. Cristobal Garnett FREE THYROXINE INDEX T7on FTI 2.41 Normal 1.30-4.50 [facility] Comment on above: Performed By: #### T SH, LIPID, CMP, T7 #### [facility] [address] [address] [address] Cristobal Garnett T3U 33.0 % Normal 33.0-40.0 [facility] Comment on above: Performed By: #### T SH, LIPID, CMP, T7 #### [facility] [address] [address] [address] Cristobal Garnett T4 [Mass/Vol] 7.30 ug/dL Normal 4.50-12.10 The [facility] Comment on above: Result Comment: T4 t esting performed by [facility] Performed By: #### T SH, LIPID, CMP, T7 #### [facility] [address] [address] [address] Cristobal Garnett IRONon 09-29-2021 Iron [Mass/Vol] 107.0 ug/dL Normal 65.0-175.0 [facility] Comment on above: Performed By: #### T SH, LIPID, CMP, T7 #### [facility] [address] [place] [address] Dr. Cristobal Garnett LIPID PROFILEon 09-29-2021 CHOL-HDL RATIO NORM SEE BELOW Normal [facility] Comment on above: Result Comment: 3.3 - 4.4 LOW RISK 4.4 - 7.1 AVERAGE RISK 7.1 - 11.0 MODERATE RISK >11.0 HIGH RISK Performed By: #### T SH, LIPID, CMP, T7 #### [facility] [address] [address] [address] Cristobal Garnett Cholesterol [Mass/Vol] 140 mg/dL Normal <=200 [facility] Comment on above: Performed By: #### T SH, LIPID, CMP, T7 #### [facility] [address] [address] [address] Cristobal Garnett Cholesterol in HDL [Mass/Vol] 38 mg/dL Critically low 40-60 [facility] Comment on above: Performed By: #### T SH, LIPID, CMP, T7 #### [facility] [address] [address] [address] Cristobal Garnett Cholesterol in LDL [Mass/Vol] 80.6 mg/dL Normal [facility] Comment on above: Performed By: #### T SH, LIPID, CMP, T7 #### [facility] [address] [address] [address] Cristobal Garnett Cholesterol.total/ Cholesterol in HDL [Mass ratio] 3.7 {ratio} Normal [facility] Comment on above: Performed By: #### T SH, LIPID, CMP, T7 #### [facility] [address] [address] [address] Cristobal Garnett HDL NORMAL > or = 60 mg/dl - LO W CARDIOVASCULAR RISK <40 mg/dl - HIGH CARDIOVASCULAR RISK Normal [facility] Comment on above: Performed By: #### T SH, LIPID, CMP, T7 #### [facility] [address] [place] [address] Dr. Cristobal Garnett LDL CALC NORMAL SEE BELOW Normal [facility] Comment on above: Result Comment: <100 mg/dl OPTIMAL 100 - 129 mg/dl NEAR OR ABOVE OPTIMAL 130 - 159 mg/dl BORDERLINE HIGH 160 - 189 mg/dl HIGH >190 mg/dl VERY HIGH Performed By: #### T SH, LIPID, CMP, T7 #### [facility] [address] [address] [address] Cristobal Garnett Triglyceride [Mass/Vol] 107 mg/dL Normal <=150 [facility] Comment on above: Performed By: #### T SH, LIPID, CMP, T7 #### [facility] [address] [address] [address] Cristobal Garnett VLDL CALC 21.4 mg/dL Normal [facility] Comment on above: Performed By: #### T SH, LIPID, CMP, T7 #### [facility] [address] [address] [address] Cristobal Garnett PROF 14(COMP METB)on 022 Albumin [Mass/Vol] 4.4 g/dL Normal 3.4-5.0 [facility] Comment on above: Performed By: #### T SH, LIPID, CMP, T7 #### [facility] [address] [place] [address] Dr. Cristobal Garnett Albumin/Globulin [Mass ratio] 1.3 {ratio} Normal [facility] Comment on above: Performed By: #### T SH, LIPID, CMP, T7 #### [facility] [address] [address] [address] Cristobal Garnett ALP [Catalytic activity/Vol] 51 U/L Normal 46-116 [facility] Comment on above: Performed By: #### T SH, LIPID, CMP, T7 #### [facility] [address] [address] [address] Cristobal Garnett ALT [Catalytic activity/Vol] 71 U/L Critically high 16-63 [facility] Comment on above: Performed By: #### T SH, LIPID, CMP, T7 #### [facility] [address] [place] [address] Dr. Cristobal Garnett Anion gap [Moles/Vol] 14.3 mmol/L Normal [facility] Comment on above: Performed By: #### T SH, LIPID, CMP, T7 #### [facility] [address] [place] [address] Dr. Cristobal Garnett AST [Catalytic activity/Vol] 41 U/L Critically high 15-37 [facility] Comment on above: Performed By: #### T SH, LIPID, CMP, T7 #### [facility] [address] [place] [address] Dr. Cristobal Garnett Bilirubin [Mass/Vol] 0.8 mg/dL Normal 0.2-1.0 [facility] Comment on above: Performed By: #### T SH, LIPID, CMP, T7 #### [facility] [address] [place] [address] Dr. Cristobal Garnett Calcium [Mass/Vol] 9.1 mg/dL Normal 8.5-10.1 [facility] Comment on above: Performed By: #### T SH, LIPID, CMP, T7 #### [facility] [address] [place] [address] Dr. Cristobal Garnett Chloride [Moles/Vol] 99 mmol/L Normal 98-107 [facility] Comment on above: Performed By: #### T SH, LIPID, CMP, T7 #### [facility] [address] [place] [address] Dr. Cristobal Garnett CO2 [Moles/Vol] 29.7 mmol/L Normal 21.0-32.0 [facility] Comment on above: Performed By: #### T SH, LIPID, CMP, T7 #### [facility] [address] [address] [address] Cristobal Garnett Creatinine [Mass/Vol] 1.27 mg/dL Normal 0.70-1.30 [facility] Comment on above: Performed By: #### T SH, LIPID, CMP, T7 #### [facility] [address] [address] [address] Cristobal Garnett EGFR-AF [place] >60 Normal >=60 [facility] Comment on above: Performed By: #### T SH, LIPID, CMP, T7 #### [facility] [address] [place] [address] Dr. Cristobal Garnett EGFR-NON AF [place] 55 mL/min/1.73m2 Critically low >=60 [facility] Comment on above: Performed By: #### T SH, LIPID, CMP, T7 #### [facility] [address] [address] [address] Cristobal Garnett Globulin (S) [Mass/Vol] 3.5 g/dL Normal [facility] Comment on above: Performed By: #### T SH, LIPID, CMP, T7 #### [facility] [address] [address] [address] Cristobal Garnett Glucose [Mass/Vol] 147 mg/dL Critically high 74-106 [facility] Comment on above: Performed By: #### T SH, LIPID, CMP, T7 #### [facility] [address] [address] [address] Cristobal Garnett Potassium [Moles/Vol] 4.0 mmol/L Normal 3.5-5.1 [facility] Comment on above: Performed By: #### T SH, LIPID, CMP, T7 #### [facility] [address] [address] [address] Cristobal Garnett Protein [Mass/Vol] 7.9 g/dL Normal 6.4-8.2 [facility] Comment on above: Performed By: #### T SH, LIPID, CMP, T7 #### [facility] [address] [address] [address] Cristobal Garnett Sodium [Moles/Vol] 139 mmol/L Normal 136-145 [facility] [facility] Comment on above: Performed By: #### T SH, LIPID, CMP, T7 #### [facility] [address] [address] [address] Cristobal Garnett Urea nitrogen [Mass/Vol] 20.0 mg/dL Critically high 7.0-18.0 [facility] Comment on above: Performed By: #### T SH, LIPID, CMP, T7 #### [facility] [address] [address] [address] Cristobal Garnett Urea nitrogen/Creatinin e [Mass ratio] 15.7 mg/mg Normal [facility] Comment on above: Performed By: #### T SH, LIPID, CMP, T7 #### [facility] [address] [address] [address] Cristobal Garnett TSHon 09-29-2021 TSH 6.478 uIU/mL Critically high 0.358-3.740 [facility] Comment on above: Performed By: #### T SH, LIPID, CMP, T7 #### [facility] [address] [place] [address] Dr. Cristobal Garnett TSH RANGE SEE BELOW Normal [facility] Comment on above: Result Comment: <0.3 4 UIU/ml HYPERTHYROID 0.34-5.60 UIU/ml EUTHYROID >5.60 UIU/ml HYPOTHYROID Performed By: #### T SH, LIPID, CMP, T7 #### [facility] [address] [place] [address] Dr. Cristobal Garnett VITAMIN D 25 OHon 09-29-2021 VIT D 25-OH 52.0 ng/mL Normal [facility] Comment on above: Performed By: #### T SH, LIPID, CMP, T7 #### [facility] [address] [place] [address] Dr. Cristobal Garnett VIT D RANGES SEE BELOW Normal [facility] Comment on above: Result Comment: <20 ng/mL Vit D deficient 20 - <30 ng/mL Vit D insufficient 30 - 100 ng/mL Vit D sufficient >100 ng/mL Potential Toxicity Performed By: #### T SH, LIPID, CMP, T7 #### [facility] [address] [address] [address] Cristobal Garnett Vital Signs Date Time Vital Sign Value Performing Clinician Liam perdomo 10-23-2023 12:36-0400 Blood Pressure Location Venkata PHILLIPS [facility] 10-23-2023 12:36-0400 Diastolic blood pressure 78 mm[Hg] Venkatadae PHILLIPS [facility] 10-23-2023 12:36-0400 Heart rate 63 /min Venkatadae PHILLIPS [facility] 10-23-2023 12:36-0400 Respiratory rate 16 /min Venkata PHILLIPS [facility] 10-23-2023 12:36-0400 Systolic blood pressure 117 mm[Hg] Venkata PHILLIPS [facility] 10-17-2022 14:20-0400 Blood Pressure Location Venkata PHILLIPS [facility] 10-17-2022 14:20-0400 Diastolic blood pressure 78 mm[Hg] Venkata PHILLIPS [facility] 10-17-2022 14:20-0400 Heart rate 68 /min Venkata PHILLIPS [facility] 10-17-2022 14:20-0400 Systolic blood pressure 130 mm[Hg] Venkata PHILLIPS [facility] Encounters Encounter Date Encounter Type Care Provider Facility Start: 04-21-2025 ambulatory Venkata PHILLIPS [facility] Start: 07-25-2024 End: 07-25-2024 ambulatory ROGE MARTINIRIVKARAQUEL Not Available Start: 07-17-2024 End: 07-17-2024 ambulatory MARICARMEN HURTADO Not Available Start: 10-23-2023 End: 10-23-2023 ambulatory Venkata PHILLIPS Facility:[facility] Start: 10-23-2023 End: 10-23-2023 Patient encounter procedure Venkata PHILLIPS [facility] Start: 10-17-2022 End: 10-17-2022 Patient encounter procedure Venkata PHILLIPS [facility] Start: 06-21-2022 End: 06-21-[address] KEVAN CARNEY . Facility:[facility] Start: 06-20-2022 End: 06-21-2022 ambulatory JAQUI LEES Facility:[facility] Start: 12-02-2021 ambulatory JAQUI LEES Facility: [facility] Start: 11-30-2021 End: 12-01-2021 ambulatory JAQUI LEES Facility:[facility] Start: 10-26-2021 End: 10-27-2021 ambulatory JAQUI LEES Facility:[facility] Start: 09-29-2021 End: 09-30-2021 ambulatory JAQUI LEES Facility:[facility] Procedures Date Procedure Procedure Detail Performing Clinician Start: 03-02-2021 Cystoscopy Venkata GONSALEZ Start: 08-28-2013 Injection of facet j oint using fluoroscopic guidance Venkata PHILLIPS Comment on above: bilateral C4-7 cervical discetomy 2 Venkata PHILLIPS Comment on above: 1993 Extracorporeal shock wave lithotripsy of ureter Venkata PHILLIPS Repair of rectal fistula Erin PHILLIPS Tonsillectomy and adenoidectomy Venkata PHILLIPS Immunizations Immunization Date Immunization Notes Care Provider Selvin fuentes 03-22-2023 influenza virus vaccine, unspecified formulation Venkata PHILLIPS [facility] 03-14-2022 influenza virus vaccine, unspecified formulation Venkata PHILLIPS [facility] 02-27-2021 SARS-CoV-2 (COVID-19 ) mRNA BNT-162b2 vax Venkata PHILLIPS [facility] Comment on above: Result Comment: 2022: [id number] 02-05-2021 SARS-CoV-2 (COVID-19 ) mRNA BNT-162b2 vax Venkata PHILLIPS [facility] Comment on above: Result Comment: pt i s scheduled for second dose 02/27/21 01-29-2021 influenza virus vaccine, unspecified formulation Venkata PHILLIPS [facility] 03-14-2020 influenza virus vaccine, unspecified formulation Venkata PHILLIPS [facility] 01-30-2019 influenza virus vaccine, unspecified formulation Venkata PHILLIPS [facility] 03-02-2018 influenza virus vaccine, unspecified formulation Venkata PHILLIPS [facility] 03-02-2018 pneumococcal conjuga te vaccine, 13 valent Venkata PHILLIPS [facility] 02-04-2016 influenza virus vaccine, unspecified formulation Venkata PHILLIPS [facility] Payers Date Payer Category Payer Unknown [id number] 1958 Medicare [id number] 1958 Self-pay 1958 Unknown [id number] 1945 Unknown [id number] 2.16.84 [id number] 1945 Unknown [id number] 2.16.84 [id number] 1945 Unknown [id number] 2.16.84 [id number] 1946 Unknown [id number] 2.16.84 [id number] 1946 Unknown [id number] 2.16.84 [id number] 1946 Unknown [id number] 2.16.84 [id number] 1946 Unknown [id number] 2.16.8 [id number] 1945 Unknown [id number] 2.16.8 [id number] 1946 Unknown [id number] 2.16.84 [id number] 1946 Unknown [id number] 2.16.84 [id number] Social History Date Type Detail Facility Start: 10-17-2022 End: 10-23-2023 Tobacco smoking status Never smoked tobacco (finding) [facility] Tobacco smoking status Never [facility] Sex Assigned At Male [facility] Functional Status Date Assessment Result Facility 10-23-2023 Functional Status N/A [facility] 10-17-2022 Functional Status N/A [facility] Hospital Discharge instructions 10-23-2023 Note Date & Type Note Facility 10-23-2023 Hospital Discharge instructions Patient Education 10/23/2023 13:24:00 Benign Prostatic Hyperplasia Benign Prostatic Hyperplasia Benign prostatic hyperplasia (BPH) is an enlarged prostate gland that is caused by the normal aging process. The prostate may get bigger as a man gets older. The condition is not caused by cancer. The prostate is a walnut-sized gland that is involved in the production of semen. It is located in front of the rectum and below the bladder. The bladder stores urine. The urethra carries stored urine out of the body. An enlarged prostate can press on the urethra. This can make it harder to pass urine. The buildup of urine in the bladder can cause infection. Back pressure and infection may progress to bladder damage and kidney (renal) failure. What are the causes? This condition is part of the normal aging process. However, not all men develop problems from this condition. If the prostate enlarges away from the urethra, urine flow will not be blocked. If it enlarges toward the urethra and compresses it, there will be problems passing urine. What increases the risk? This condition is more likely to develop in men older than 50 years. What are the signs or symptoms? Symptoms of this condition include: Getting up often during the night to urinate. Needing to urinate frequently during the day. Difficulty starting urine flow. Decrease in size and strength of your urine stream. Leaking (dribbling) after urinating. Inability to pass urine. This needs immediate treatment. Inability to completely empty your bladder. Pain when you pass urine. This is more common if there is also an infection. Urinary tract infection (UTI). How is this diagnosed? This condition is diagnosed based on your medical history, a physical exam, and your symptoms. Tests will also be done, such as: A post-void bladder scan. This measures any amount of urine that may remain in your bladder after you finish urinating. A digital rectal exam. In a rectal exam, your health care provider checks your prostate by putting a lubricated, gloved finger into your rectum to feel the back of your prostate gland. This exam detects the size of your gland and any abnormal lumps or growths. An exam of your urine (urinalysis). A prostate specific antigen (PSA) screening. This is a blood test used to screen for prostate cancer. An ultrasound. This test uses sound waves to electronically produce a picture of your prostate gland. Your health care provider may refer you to a specialist in kidney and prostate diseases (urologist). How is this treated? Once symptoms begin, your health care provider will monitor your condition (active surveillance or watchful waiting). Treatment for this condition will depend on the severity of your condition. Treatment may include: Observation and yearly exams. This may be the only treatment needed if your condition and symptoms are mild. Medicines to relieve your symptoms, including: ?Medicines to shrink the prostate. ?Medicines to relax the muscle of the prostate. Surgery in severe cases. Surgery may include: ?Prostatectomy. In this procedure, the prostate tissue is removed completely through an open incision or with a laparoscope or robotics. ?Transurethral resection of the prostate (TURP). In this procedure, a tool is inserted through the opening at the tip of the penis (urethra). It is used to cut away tissue of the inner core of the prostate. The pieces are removed through the same opening of the penis. This removes the blockage. ?Transurethral incision (TUIP). In this procedure, small cuts are made in the prostate. This lessens the prostate's pressure on the urethra. ?Transurethral microwave thermotherapy (TUMT). This procedure uses microwaves to create heat. The heat destroys and removes a small amount of prostate tissue. ?Transurethral needle ablation (TUNA). This procedure uses radio frequencies to destroy and remove a small amount of prostate tissue. ?Interstitial laser coagulation (ILC). This procedure uses a laser to destroy and remove a small amount of prostate tissue. ?Transurethral electrovaporization (TUVP). This procedure uses electrodes to destroy and remove a small amount of prostate tissue. ?Prostatic urethral lift. This procedure inserts an implant to push the lobes of the prostate away from the urethra. Follow these instructions at home: Take efcr-ctm-ghveivf and prescription medicines only as told by your health care provider. Monitor your symptoms for any changes. Contact your health care provider with any changes. Avoid drinking large amounts of liquid before going to bed or out in public. Avoid or reduce how much caffeine or alcohol you drink. Give yourself time when you urinate. Keep all follow-up visits. This is important. Contact a health care provider if: You have unexplained back pain. Your symptoms do not get better with treatment. You develop side effects from the medicine you are taking. Your urine becomes very dark or has a bad smell. Your lower abdomen becomes distended and you have trouble passing urine. Get help right away if: You have a fever or chills. You suddenly cannot urinate. You feel light-headed or very dizzy, or you faint. There are large amounts of blood or clots in your urine. Your urinary problems become hard to manage. You develop moderate to severe low back or flank pain. The flank is the side of your body between the ribs and the hip. These symptoms may be an emergency. Get help right away. Call 911. Do not wait to see if the symptoms will go away. Do not drive yourself to the hospital. Summary Benign prostatic hyperplasia (BPH) is an enlarged prostate that is caused by the normal aging process. It is not caused by cancer. An enlarged prostate can press on the urethra. This can make it hard to pass urine. This condition is more likely to develop in men older than 50 years. Get help right away if you suddenly cannot urinate. This information is not intended to replace advice given to you by your health care provider. Make sure you discuss any questions you have with your health care provider. Document Revised: 11/03/2021 Document Reviewed: 11/03/2021 [employer] Patient Education 2022 [employer]. Follow Up Care 10/17/2022 15:05:45 With:MARIELLA HO, Venkata Stein, URL Address: [facility] [address] [place] [address]- [phone] When: Unknown Comments:18 mos (no labs) [facility] Discharge instructions 10-17-2022 Note Date & Type Note Facility 10-17-2022 Hospital Discharge instructions Patient Education 10/17/2022 08:46:35 Benign Prostatic Hyperplasia Benign Prostatic Hyperplasia Benign prostatic hyperplasia (BPH) is an enlarged prostate gland that is caused by the normal aging process. The prostate may get bigger as a man gets older. The condition is not caused by cancer. The prostate is a walnut-sized gland that is involved in the production of semen. It is located in front of the rectum and below the bladder. The bladder stores urine. The urethra carries stored urine out of the body. An enlarged prostate can press on the urethra. This can make it harder to pass urine. The buildup of urine in the bladder can cause infection. Back pressure and infection may progress to bladder damage and kidney (renal) failure. What are the causes? This condition is part of the normal aging process. However, not all men develop problems from this condition. If the prostate enlarges away from the urethra, urine flow will not be blocked. If it enlarges toward the urethra and compresses it, there will be problems passing urine. What increases the risk? This condition is more likely to develop in men older than 50 years. What are the signs or symptoms? Symptoms of this condition include: Getting up often during the night to urinate. Needing to urinate frequently during the day. Difficulty starting urine flow. Decrease in size and strength of your urine stream. Leaking (dribbling) after urinating. Inability to pass urine. This needs immediate treatment. Inability to completely empty your bladder. Pain when you pass urine. This is more common if there is also an infection. Urinary tract infection (UTI). How is this diagnosed? This condition is diagnosed based on your medical history, a physical exam, and your symptoms. Tests will also be done, such as: A post-void bladder scan. This measures any amount of urine that may remain in your bladder after you finish urinating. A digital rectal exam. In a rectal exam, your health care provider checks your prostate by putting a lubricated, gloved finger into your rectum to feel the back of your prostate gland. This exam detects the size of your gland and any abnormal lumps or growths. An exam of your urine (urinalysis). A prostate specific antigen (PSA) screening. This is a blood test used to screen for prostate cancer. An ultrasound. This test uses sound waves to electronically produce a picture of your prostate gland. Your health care provider may refer you to a specialist in kidney and prostate diseases (urologist). How is this treated? Once symptoms begin, your health care provider will monitor your condition (active surveillance or watchful waiting). Treatment for this condition will depend on the severity of your condition. Treatment may include: Observation and yearly exams. This may be the only treatment needed if your condition and symptoms are mild. Medicines to relieve your symptoms, including: ?Medicines to shrink the prostate. ?Medicines to relax the muscle of the prostate. Surgery in severe cases. Surgery may include: ?Prostatectomy. In this procedure, the prostate tissue is removed completely through an open incision or with a laparoscope or robotics. ?Transurethral resection of the prostate (TURP). In this procedure, a tool is inserted through the opening at the tip of the penis (urethra). It is used to cut away tissue of the inner core of the prostate. The pieces are removed through the same opening of the penis. This removes the blockage. ?Transurethral incision (TUIP). In this procedure, small cuts are made in the prostate. This lessens the prostate's pressure on the urethra. ?Transurethral microwave thermotherapy (TUMT). This procedure uses microwaves to create heat. The heat destroys and removes a small amount of prostate tissue. ?Transurethral needle ablation (TUNA). This procedure uses radio frequencies to destroy and remove a small amount of prostate tissue. ?Interstitial laser coagulation (ILC). This procedure uses a laser to destroy and remove a small amount of prostate tissue. ?Transurethral electrovaporization (TUVP). This procedure uses electrodes to destroy and remove a small amount of prostate tissue. ?Prostatic urethral lift. This procedure inserts an implant to push the lobes of the prostate away from the urethra. Follow these instructions at home: Take qzjr-szz-zlosxbq and prescription medicines only as told by your health care provider. Monitor your symptoms for any changes. Contact your health care provider with any changes. Avoid drinking large amounts of liquid before going to bed or out in public. Avoid or reduce how much caffeine or alcohol you drink. Give yourself time when you urinate. Keep all follow-up visits. This is important. Contact a health care provider if: You have unexplained back pain. Your symptoms do not get better with treatment. You develop side effects from the medicine you are taking. Your urine becomes very dark or has a bad smell. Your lower abdomen becomes distended and you have trouble passing urine. Get help right away if: You have a fever or chills. You suddenly cannot urinate. You feel light-headed or very dizzy, or you faint. There are large amounts of blood or clots in your urine. Your urinary problems become hard to manage. You develop moderate to severe low back or flank pain. The flank is the side of your body between the ribs and the hip. These symptoms may be an emergency. Get help right away. Call 911. Do not wait to see if the symptoms will go away. Do not drive yourself to the hospital. Summary Benign prostatic hyperplasia (BPH) is an enlarged prostate that is caused by the normal aging process. It is not caused by cancer. An enlarged prostate can press on the urethra. This can make it hard to pass urine. This condition is more likely to develop in men older than 50 years. Get help right away if you suddenly cannot urinate. This information is not intended to replace advice given to you by your health care provider. Make sure you discuss any questions you have with your health care provider. Document Revised: 11/03/2021 Document Reviewed: 11/03/2021 [employer] Patient Education 2022 [employer]. Follow Up Care 02/14/2022 10:13:05 With:MARIELLA HO, Venkata Stein, URL Address: [facility] [address] , [place] [address]- When: Unknown [facility] Medication management note 05-16-2022 Note Date & Type Note Facility 05-16-2022 Note Entered by Jina Red on May 16, 2022 09:03:00 EST From: Jina Red To: [facility] #[id number] Sent: 05/16/2022 09:03:00 EST Subject: Medication Management Not Approved: Patient needs appointment atenolol-chlorthalidone (ATENOLOL-CHLORTHALIDONE 50-25) TAKE 1 TABLET BY MOUTH EVERY DAY Qty: 90 tab(s) Days Supply: 90 Refills: 3 Substitutions Allowed Route To Pharmacy - [facility]/pharmacy #[id number] Signed by Jina Red From: [id number] To: Giovanny Ortiz DO Sent: May 16, 2022 7:58:57 AM REGISTERED PHARMACY TECHNICIAN Subject: Medication Management Due: May 17, 2022 12:10:33 AM REGISTERED PHARMACY TECHNICIAN On Hold Pending Signature Dispensed Drug: atenolol-chlorthalidone (atenolol-chlorthalidone 50 mg-25 mg oral tablet), TAKE 1 TABLET BY MOUTH EVERY DAY Quantity: 90 tab(s) Days Supply: 90 Refills: 3 Substitutions Allowed Notes from Pharmacy: [facility] Medication management note 08-13-2021 Note Date & Type Note Facility 08-13-2021 Note - From: Jina Red ([facility] ([facility] To: Giovanny Ortiz DO; Sent: 08/13/2021 07:43:59 EDT Subject: Med Management Caller is: ( ) Patient ( ) Mother ( ) Father ( X ) Pharmacy ( ) Other: Pharmacy to route Rx to: [facility] Patient's Provider: Reviewed Allergies: ( ) Yes ( ) No Pharmacy: [facility] Comments: PATIENT HASN'T BEEN SEEN SINCE 07/2020 1. Name of Medication: METFORMIN 1000mg BID Dosage: Dispense: ( ) New ( ) Refill Comment: 2. Name of Medication: Dosage: Dispense: ( ) New ( ) Refill Comment: 3. Name of Medication: Dosage: Dispense: ( ) New ( ) Refill Comment: 4. Name of Medication: Dosage: Dispense: ( ) New ( ) Refill Comment: ( ) OK to leave message on voice mail ( ) Patient told to expect return call: ( ) today ( ) tomorrow ( ) next work day ( ) Patient's email ( ) Other: Call back phone # now: until: Call back phone # later: Submitted: Order:metFORMIN (metFORMIN 1000 mg oral tablet) 1 tab(s) PO BID Qty: 60 tab(s) Duration: 30 day(s) Refills: 0 Substitutions Allowed Route To Pharmacy - [id number] Signed by Giovanny Ortiz DO 08/13/2021 07:45:00 EDT From: Giovanny Ortiz DO To: [facility] ([facility] Sent: 08/13/2021 07:46:09 EDT Subject: RE: Med Management i gave him a month's worth needs to be seen. From: Jina Red ([facility] ([facility] To: [facility] ([facility]); Sent: 08/13/2021 07:53:40 EDT Subject: FW: Med Management please schedule From: Hien Good ([facility] ([facility] To: [facility] ([facility]); Sent: 08/13/2021 10:44:58 EDT Subject: RE: Med Management tried to call patient went straight to voicemail, but his voicemail is not set up. unable to leave a message [facility] Medication management note 08-13-2021 Note Date & Type Note Facility 08-13-2021 Note Entered by Jina Red on August 13, 2021 07:54:16 EDT From: Jina Red To: [facility]/pharmacy #[id number] Sent: 08/13/2021 07:54:16 EDT Subject: Medication Management Not Approved: Patient needs appointment metFORMIN (METFORMIN HCL 1,000 MG TABLET) TAKE 1 TABLET BY MOUTH TWICE A DAY Qty: 180 tab(s) Days Supply: 90 Refills: 1 Substitutions Allowed Route To Pharmacy - [id number] Signed by Jina Red From: [id number] To: Giovanny Ortiz DO Sent: August 12, 2021 11:15:27 PM CDT Subject: Medication Management Due: August 13, 2021 12:06:55 AM CDT On Hold Pending Signature Dispensed Drug: metFORMIN (metFORMIN 1000 mg oral tablet), TAKE 1 TABLET BY MOUTH TWICE A DAY Quantity: 180 tab(s) Days Supply: 90 Refills: 1 Substitutions Allowed Notes from Pharmacy: [facility] Medication management note 07-28-2021 Note Date & Type Note Facility 07-28-2021 Note - From: Jina Red ([facility] ([facility])) To: Marva Cole CNP; Sent: 07/28/2021 07:38:56 EDT Subject: FW: Medication Management Due Date/Time: 07/29/2021 01:33:00 EDT Due for appt in July. Please only give 30 days. From: [id number] To: Giovanny Ortiz DO Sent: July 28, 2021 12:33:41 AM CDT Subject: Medication Management Due: July 29, 2021 12:02:41 AM CDT On Hold Pending Signature Dispensed Drug: atenolol-chlorthalidone (atenolol-chlorthalidone 50 mg-25 mg oral tablet), TAKE 1 TABLET BY MOUTH EVERY DAY Quantity: 90 tab(s) Days Supply: 90 Refills: 3 Substitutions Allowed Notes from Pharmacy: From: Marva Cole APRN, CNP To: [facility] #[id number] Sent: 07/28/2021 08:27:36 EDT Subject: FW: Medication Management Submitted: Complete:atenolol-chlorthalidone (atenolol-chlorthalidone 50 mg-25 mg oral tablet) Signed by Marva Cole APRN, CNP 07/28/2021 08:27:00 EDT Approved atenolol-chlorthalidone (ATENOLOL-CHLORTHALIDONE 50-25) TAKE 1 TABLET BY MOUTH EVERY DAY Qty: 90 tab(s) Days Supply: 90 Refills: 3 Substitutions Allowed Route To Pharmacy - [id number] Signed by Marva Cole APRN, CNP [facility] Evaluation + Plan note Note Date & Type Note Facility Evaluation + Plan note Future Appointments Appointment Date:10/23/2023 12:15:00 PM Scheduled Provider:Venkata PHILLIPS MD Location:[facility] Appointment Type:URO Office Visit [facility] Hospital course Narrative Note Date & Type Note Facility Hospital course Narrative No data available for this section [facility] Progress note Note Date & Type Note Facility Progress note No data available for this section [facility] Summary Purpose Family History No Family History Records FoundNo Family History Records Found No data available for this section No Family History Records FoundNo Family History Records Found Advance Directives No Advanced Directives Records FoundNo Advanced Directives Records FoundNo Advanced Directives Records FoundNo Advanced Directives Records Found Additional Source Comments (unrecognized sect ion and content) No Status Records FoundNo Status Records FoundNo Status Records FoundNo Status Records Found INFORMATION SOURCE (unrecogn ized section and content) DATE CREATED AUTHOR 05/16/2022 [facility] DATE CREATED AUTHOR AUTHOR'S ORGANIZ ATION 06/25/2022 [facility] DATE CREATED AUTHOR AUTHOR'S ORGANIZ ATION 06/28/2024 [facility] DATE CREATED AUTHOR AUTHOR'S ORGANIZ ATION 07/26/2024 [facility] EPIC Patient Care team informatio n (unrecognized section and content) Personnel Name: JAQUI LEES CNP Address: Address: [address] [address] Personnel Name: JAQUI LEES CNP Address: Address: [address] [place] [place] [address] FOR RECORDS PERTAINING TO PATIENTS WHO ARE OR HAVE BEEN ENROLLED IN A CHEMICAL DEPENDENCY/SUBSTANCEABUSE PROGRAM, SOME INFORMATION MAY BE OMITTED. This clinical summary was aggregated from multiple sources. Caution should be exercised in using it in the provision of clinical care. This summary normalizes information from multiple sources, and as a consequence, information in this document may materially change the coding, format and clinical context of patient data. In addition, data may be omitted in some cases. CLINICAL DECISIONS SHOULD BE BASED ON THE PRIMARY CLINICAL RECORDS. [facility] [employer] [facility] provides no warranty or guarantee of the accuracy or completeness of information in this document.
[2025-02-05 09:55] LABS: Alanine Aminotransferase 37 U/L (16-63); Albumin Globulin Ratio 1.1; Albumin Level 4.2 g/dL (3.4-5.0); Alkaline Phosphatase 54 U/L (46-116); Anion Gap 15.1; Aspartate Amino Transferase 31 U/L (15-37); Blood Urea Nitrogen 17.0 mg/dL (7.0-18.0); Calcium 9.1 mg/dL (8.5-10.1); Carbon Dioxide 28.5 mmol/L (21.0-32.0); Chloride 101 mmol/L (98-107); Cholesterol 143 mg/dL (<=200); Estimated GFR (African America >60 (>=60 mL/min/1.73m^2); Estimated GFR (Non-African Ame 60 (>=60 mL/min/1.73m^2); Free T3 2.47 pg/mL (2.18-3.98); Globulin 3.9 g/dL; Glucose 136 mg/dL (74-106); HDL Cholesterol 35 mg/dL (40-60); Potassium 3.6 mmol/L (3.5-5.1); Sodium 141 mmol/L (136-145); Thyroid Stimulating Hormone 8.626 uIU/mL (0.358-3.740); Total Protein 8.1 g/dL (6.4-8.2); Triglycerides 119 mg/dL (<=150); Uric Acid 6.0 mg/dL (3.5-7.2); VLDL CHOLESTEROL 23.8 mg/dL
[2025-02-05 10:06] LABS: Hematocrit 42.5 % (42.0-54.0); Hemoglobin 14.3 g/dL (14.0-18.0); Mean Corpuscular HGB Conc 33.6 g/dL (29.9-35.2); Mean Corpuscular Hemoglobin 31.4 pg (25.9-34.0); Mean Corpuscular Volume 93.2 fL (80.0-94.0); Platelet Count 210 10^3/uL (150-450); Red Blood Count 4.56 10^6/uL (4.70-6.10); White Blood Count 6.1 10^3/uL (4.0-11.0)
[2025-02-05 10:50] LABS: Segmented Neut Absolute Manual 2.62 10^3/uL (1.4-6.5); Segmented Neutrophils % Manual 43.0 (43.0-75.0)
[2025-02-05 10:51] LABS: Basophils Abs Manual 0.06 10^3/uL (0.00-0.10); Basophils Percent Manual 1.0 % (0.2-2.0); Eosinophils Absolute Manual 0.18 10^3/uL (0.00-0.70); Eosinophils Percent Manual 3.0 % (0.9-7.0); Lymphocytes Absolute Manual 1.22 10^3/uL (1.20-3.80); Lymphocytes Percent Manual 20.0 % (20.5-60.0); Monocytes Absolute Manual 2.01 10^3/uL (0.30-0.80); Monocytes Percent Manual 33.0 % (1.7-12.0)
== END 2025-02-05 08:01 | disposition home or self-care (01) ==
PROVIDERS: PCP Nurse Practitioner Family; Visit Provider Nurse Practitioner Family
DX: E11.9 Type 2 diabetes mellitus without complications (principal); Z12.5 Encounter for screening for malignant neoplasm of prostate
CPT/HCPCS: 36415; 80053; 80061; 83036; 83525; 84436; 84443; 84481; 84550; 85007; 85027; G0103